=== PATIENT | male | born 1965 | race Caucasian/White ===

== ENCOUNTER 2022-10-05 09:58 | Outpatient (OUT) | payer BC, SELFPAY ==
[2022-10-05 13:01] LABS: Free T4 1.06 ng/dL (0.76-1.46)
[2022-10-05 13:33] LABS: Free T3 2.93 pg/mL (2.18-3.98); Thyroid Stimulating Hormone 1.473 uIU/mL (0.358-3.740)
[2022-10-06 04:07] LABS: FSH 0.9 mIU/mL (1.5-12.4); Luteinizing Hormone(LH) <0.3 mIU/mL (1.7-8.6); Prolactin 6.1 ng/mL (4.0-15.2); Sex Horm Binding Glob, Serum 14.6 nmol/L (19.3-76.4); Testosterone 47 ng/dL (264-916)
[2022-10-08 16:09] LABS: Thyroglobulin Antibody <1.0 IU/mL (0.0-0.9)
[2022-10-12 00:06] LABS: Thyroglobulin (TG-RIA) 4.9 ng/mL (.)
== END 2022-10-05 09:59 ==
LOC: LAB 10:02
PROVIDERS: PCP Family Medicine; Visit Provider Internal Medicine
DX: E03.9 Hypothyroidism, unspecified (principal)
CPT/HCPCS: 36415; 80048; 82728; 83001; 83002; 84146; 84270; 84403; 84432; 84439; 84443; 84481; 86800

== ENCOUNTER 2022-10-05 10:05 | Outpatient (OUT) | payer BC, SELFPAY ==
[2022-10-05 12:32] LABS: Estimated Average Glucose 143 mg/dL; Glycohemoglobin A1C 6.6 % (4.5-6.2)
[2022-10-05 13:15] LABS: Alanine Aminotransferase 47 U/L (16-63); Albumin Globulin Ratio 0.9; Albumin Level 3.6 g/dL (3.4-5.0); Alkaline Phosphatase 88 U/L (46-116); Anion Gap 11.2; Aspartate Amino Transferase 19 U/L (15-37); BUN Creatinine Ratio 14.7; Bilirubin Total 0.6 mg/dL (0.2-1.0); Calcium 9.3 mg/dL (8.5-10.1); Carbon Dioxide 30.2 mmol/L (21.0-32.0); Chloride 104 mmol/L (98-107); Chol HDL Ratio 4.8; Cholesterol 191 mg/dL (<=200); Estimated GFR (African America >60 (>=60); Estimated GFR (Non-African Ame >60 (>=60); Globulin 4.1 g/dL; Glucose 133 mg/dL (74-106); HDL Cholesterol 40 mg/dL (40-60); Potassium 4.4 mmol/L (3.5-5.1); Sodium 141 mmol/L (136-145); Total Protein 7.7 g/dL (6.4-8.2); Triglycerides 105 mg/dL (<=150)
== END 2022-10-05 10:06 ==
LOC: LAB 10:07
PROVIDERS: PCP Family Medicine; Visit Provider Family Medicine
DX: E03.9 Hypothyroidism, unspecified (principal); E11.9 Type 2 diabetes mellitus without complications; E78.2 Mixed hyperlipidemia; I10 Essential (primary) hypertension
CPT/HCPCS: 36415; 80053; 80061; 82728; 83001; 83002; 83036; 84146; 84270; 84403; 84432; 84439; 84443; 84481; 86800

== ENCOUNTER 2024-10-12 08:42 | Outpatient (OUT) | payer BC, SELFPAY ==
--- OUTSIDE RECORDS SUMMARY | 2024-09-30 15:30 | XMS_ITS | Encounter Summary ---
Author Organization [facility] Address [address] [place] [address] Care Team Providers Care Dean Of Girls Name Role Phone Elio Cueto MD Primary Care Provider [phone] Reason for Visit * Reason Comments Testicular Hypofunction Injections Encounter Details Date Type Department Care Team (Latest Contact Info) Description 09/30/2024 3:30 PM EDT Office Visit [facility] [address] [place] [phone] Hypopituitarism (HCC) Social History Tobacco Use Types Packs/Day Years Used Date Smoking Tobacco: Never Smokeless Tobacco: Never Alcohol Use Standard Drinks/Week Comments Not Currently 0 (1 standard drink = 0.6 oz pur e alcohol) Sex and Gender Information Value Date Recorded Sex Assigned at Not on file Legal Sex Male 11:47 PM EDT Gender Identity Not on file Sexual Orientation Not on file documented as of this encounter Plan of Treatment Upcoming Encounters Date Type Department Care Team (Late st Contact Info) Description 10/21/2024 2:30 PM EDT Clinical Support [facility] [address] [place] [phone] 10/28/2024 2:30 PM EDT Office Visit [facility] [address] [place] [phone] Kale Barnard MD [address] [place], [place] [id number] 11/18/2024 2:30 PM EDT Clinical Support [facility] [address] [place] [address] 06/28/2025 3:40 PM EDT Office Visit [facility] [address] [place] [address] Sebastian James MD [address] [facility] [address] [facility] [address] [place] [address] documented as of this encounter Visit Diagnoses Diagnosis Hypopituitarism (HCC) Panhypopituitarism documented in this encounter Administered Medications Inactive Administered Medications - up to 3 most recent administrations Medication Order MAR Action Action Date Dose Rate Site testosterone cypionate (Depo-Testosterone) injection 200 mg 200 mg, Intramuscular, Once, On Sat09/30/24 at 1545, For 1 doseIndications:Hypopituita rism (HCC) Given 09/30/2024 3:38 PM EDT 200 mg Left Gluteal documented in this encounter Care Teams Dean Of Girls Relationship Specialty Start Date End Date Elio Cueto MD [address] [facility] [place] [address] PCP - General Family Medicine 09/11/22 documented as of this encounter
--- OUTSIDE RECORDS SUMMARY | 2024-10-01 09:15 | XMS_ITS | Encounter Summary ---
Author Organization [facility] Address [address] [place] [address] Care Team Providers Care Farm Contractor Buyer Name Role Phone Elio Cueto MD Primary Care Provider [phone] Encounter Details Date Type Department Care Team (Latest Contact Info) Description 10/01/2024 9:15 AM EDT Clinical Support [facility] [address] [facility] [address] [place] [phone] Allergic rhinitis due to animal (cat) (dog) hair and dander Social History Tobacco Use Types Packs/Day Years [...] on file documented as of this encounter Progress Notes * Zena Cody RN - 10/01/2024 9:15 AM EDT Patient remained in office for recommended 30 minutes. Serum #1 Antigen(s) Serum #1 Antigen(s): DF/DP/Clado Vial Concentration #1: 1:100 (Blue) Dose (mL) #1: 0.4 Location #1: Right upper arm Serum #2 Antigen(s) Serum #2 Antigen(s): Tr/Spwd/Gr/Spgr Vial Concentration #2: 1:100 (Blue) Dose (mL)#2: 0.4 Location #2: Left upper arm Serum #3 Antigen(s) (No admin fee over 2) Serum #3 Antigen(s): RW/dog/cat hair Vial Concentration #3: 1:100 (Blue) Dose: 0.4 Location: Right lower arm documented in this encounter Plan of Treatment Upcoming Encounters Date Type Department Care Team (Late st Contact Info) Description 10/21/2024 2:30 PM EDT Clinical Support [facility] [address] [place] [address] 10/28/2024 2:30 PM EDT Office Visit [facility] [address] [place] [address] Kale Barnard MD [address], [address] [place] [address] 11/18/2024 2:30 PM EDT Clinical Support [facility] [address] [place] [address] 06/28/2025 3:40 PM EDT Office Visit [facility] [address] [place] [address] Sebastian James MD [address] [place] [address] documented as of this encounter Visit Diagnoses Diagnosis Allergic rhinitis due to animal (cat) (dog) hair and dander documented in this encounter Care Teams Farm Contractor Buyer Relationship Specialty Start Date End Date Elio Cueto MD [address] [facility] [place] [address] PCP - General Family Medicine 09/11/22 documented as of this encounter
--- OUTSIDE RECORDS SUMMARY | 2024-10-08 13:00 | XMS_ITS | Encounter Summary ---
Author Organization [facility] Address [address] [place] [address] Care Team Providers Care Graphic Editor Name Role Phone Rom Elio Hector DO Primary Care Provider + [phone] Reason for Visit * Reason Comments Follow-up Patient presents tod ay for a 1 year PVR. Patient reports doing well with occasional urgency. Denies any hematuria or dysuria. Encounter Details Date Type Department Care Team (Late st Contact Info) Description 10/08/2024 1:00 PM EDT Office Visit [facility] Part of [address] [place] [address] Lisa Cassidy, LOCKSTITCH TOPSTITCHER - SCRUM PRODUCT OWNER [address] [place] [address] [address] [place] [address] BPH with obstruction/lower urinary tract symptoms (Primary Dx); Erectile dysfunction, unspecified erectile dysfunction type Social History Tobacco Use Types Packs/Day Years Used Date Smoking Tobacco: Never Smokeless Tobacco: Never Tobacco Cessation:Counseling Given: Not Answered Alcohol Use Standard Drinks/Week Comments No 0 (1 standard drink = 0.6 oz pur e alcohol) Sex and Gender Information Value Date Recorded Sex Assigned at Not on file Legal Sex Male 8:48 PM EST Gender Identity Not on file Sexual Orientation Not on file documented as of this encounter Last Filed Vital Signs Vital Sign Reading Time Taken Comments Blood Pressure 132/73 10/08/2024 1:18 PM EDT Pulse 58 10/08/2024 1:07 PM EDT Temperature - - Respiratory Rate - - Oxygen Saturation - - Inhaled Oxygen Concentration - - Weight 114.9 kg (253 lb 3.2 oz) 10/08/2024 1:07 PM EDT Height - - Body Mass Index 36.33 08/24/2022 10:37 AM EDT documented in this encounter Progress Notes * Ilana Arthur MA - 10/08/2024 1:07 PM EDT Voided: 25 ml PVR: 0 ml * Sergey Mosher MD - 10/08/2024 1:00 PM EDT History 2006 Burst disc - back surgery - has had nerve damage issues from waist down since then includingnumbness of one of his buttocks and right side of his groin. Also has erectile dysfunction since then as well. 03/2016 Referred for post-op urinary retention S/p lap jl by Dr Henderson 03/28/16. Pt started onFlomax. Pt reports this did happen about 10 yrs ago after back surgery. At baseline he reports somestraining, intermittency, constant urge to void, q1.5hr frequency. 04/17/16 - 2 wks after void trial. Feels he is emptying well. PVR good (88 mL). Does still have moderate LUTS, IPSS 14/3. Does not feel these have improved much with Flomax. Thinks maybe stream is a little stronger, otherwise no obvious improvements. Did request we check PSA due to LUTS. PSA 05/16/16 0.96. 05/2016 IPSS 18/3 added proscar 06/2017 BPH with LUTS. Taking Flomax and finasteride daily. No significant improvement since the addition of the Proscar. Cystoscopy showed bilobar hyperplasia 08/27/2017 PVP greenlight Off of Flomax and finasteride 09/2023 recommended vacuum pump for ED Today Here today to follow-up for BPH and ED. patient was able to void well today. He had a void of 25 mL. He had a postvoid residual of 0 mL. Patient is doing really well. He is not interested in any therapy for erectile dysfunction. Patient does not any gross hematuria or dysuria. He has no flank pain nausea or vomiting. He is currently not taking the medication to help him void. He reports no new or worsening lower urinary tract symptoms. He has no pain today. This is a 59 y.o. male with the following diagnoses: Diagnosis Orders 1. BPH with obstruction/lower urinary tract symptoms 2. Erectile dysfunction, unspecified erectile dysfunction type Plan Patient will continue with current therapy. He will follow-up with us in 1 year. He is getting his PSA checked by primary care. documented in this encounter Plan of Treatment Upcoming Encounters Date Type Department Care Team (Late st Contact Info) Description 10/12/2025 2:30 PM EDT Office Visit [facility] Part of [address] [place] [address] Lisa Cassidy, LOCKSTITCH TOPSTITCHER - SCRUM PRODUCT OWNER [address] [place] [address] [address] [place] [address] 1Y f/u documented as of this encounter Visit Diagnoses Diagnosis BPH with obstruction/lower urinary tract symptoms- Primary Hypertrophy of prostate with urinary obstruction and other lower urinary tract symptoms (LUTS) Erectile dysfunction, unspecified erectile dysfunction type documented in this encounter Care Teams Graphic Editor Relationship Specialty Start Date End Date Elio Cueto DO PCP - General 02/16/16 documented as of this encounter
--- OUTSIDE RECORDS SUMMARY | 2024-10-12 08:47 | XMS_ITS | Encounter Summary ---
Author Organization [facility] Address [address] [facility] [place] [address] Care Team Providers Care Recorder Helper Seismograph Name Role Phone Martin Carlson SUPERVISOR [employer] Unavailable [phone] Elio Cueto MD Primary Care Provider Martin Carlson SUPERVISOR [employer]ARM Unavailable [phone] Encounter Details Date Type Department Care Team (Late st Contact Info) Description 10/25/2022 Abstract [facility] [address] [place] [address] Enoch Gomez, PT [address] [place] [phone] Social History Tobacco Use Types Packs/Day Years [...] Clinical Support [facility] [address] [facility] [address] [place] [address] 10/28/2024 2:30 PM EDT Office Visit [facility] [address] [place] [id number] Kale Barnard MD [address], [address] [place] [address] 11/18/2024 2:30 PM EDT Clinical Support [facility] [address] [facility] [place] [phone] 06/28/2025 3:40 PM EDT Office Visit [facility] [address] [facility] [place] [phone] Sebastian James MD [address] [facility] [place] [address] documented as of this encounter Visit Diagnoses Not on filedocumented in this encounter Care Teams Recorder Helper Seismograph Relationship Specialty Start Date End Date Martin Carlson NP [address] [place], [place] [phone] PCP - [place] [employer] [employer] 05/16/22 Elio Cueto MD [address] [facility] [place] [address] PCP - General Family Medicine 09/11/22 Martin Carlson NP [address] [place], [place] [address] PCP - Beverley Commercial 01/14/2402/12 documented as of this encounter
--- OUTSIDE RECORDS SUMMARY | 2024-10-12 08:47 | XMS_ITS | Encounter Summary ---
Author Organization [facility] [place] [facility] Address [address] [place] [address] Care Team Providers Care High Density Finishing Operator Name Role Phone Elio Cueto DO Primary Care Provider Encounter Details Date Type Department Care Team (Late Contact Info) Description 03/29/2016 FollowUp Telephone Encounter [facility] General Surgery [address] [place], [place] [id number] Marianela Aly, RN Social History Tobacco Use Types Packs/Day Years Used Date Smoking Tobacco: Never Smokeless Tobacco: Never Alcohol Use Standard Drinks/Week Comments No 0 (1 standard drink = 0.6 oz pur e alcohol) Sex and Gender Information Value Date Recorded Sex Assigned at Not on file Legal Sex Male 8:48 PM EST Gender Identity Not on file Sexual Orientation Not on file documented as of this encounter Plan of Treatment Upcoming Encounters Date Type Department Care Team ([facility] Contact Info) Description 10/12/2025 2:30 PM EDT Office Visit [facility] Part of [address] [place] [address] Lisa Cassidy, HEALTH SERVICES RN - PSYCHOSOCIAL REHABILITATION COUNSELOR [address] [place] [address] [address] [place] [address] 1Y f/u documented as of this encounter Visit Diagnoses Not on filedocumented in this encounter Care Teams High Density Finishing Operator Relationship Specialty Start Date End Date Elio Cueto DO PCP - General 02/16/16 documented as of this encounter
--- OUTSIDE RECORDS SUMMARY | 2024-10-12 08:47 | XMS_ITS | Encounter Summary ---
Author Organization [facility] [facility] Address [id number] [address] [place] [address] Care Team Providers Care Lag Screwer Name Role Phone Rom Elio Hector DO Primary Care Provider + [phone] Encounter Details Date Type Department Care Team (Late st Contact Info) Description 05/25/2024 Telephone [facility] Internal Medicine - Family Medicine [address] [place] [address] Aracelis Rodriguez CMA Social History Tobacco Use Types Packs/Day Years Used Date Smoking Tobacco: Never Smokeless Tobacco: Never Alcohol Use Standard Drinks/Week Comments Never 0 (1 standard drink = 0.6 oz pur e alcohol) [facility] Utilities Answer Date Recorded In the past 12 months has [employer] electric, gas, oil, or water company threatened to shut off services in your home? No 05/06/2023 Social Connection and Isolat ion Panel [NHANES] Answer Date Recorded In a typical week, how many times do you talk on the phone with family, friends, or neighbors? More than three times a week 01/24/2022 How often do you get togethe r with friends or relatives? More than three times a week 01/24/2022 How often do you attend chur ch or sabianism services? More than 4 times per year 01/24/2022 Do you belong to any clubs o r organizations such as samaritan groups, unions, fraternal or athletic groups, or school groups? Yes 01/24/2022 How often do you attend meet ings of the clubs or organizations you belong to? More than 4 times per year 01/24/2022 Are you , , di vorced, , never , or living with a partner? 01/24/2022 AUDIT-C Answer Date Recorded Q1: How often do you have a drink containing alcohol? Never 01/24/2022 Q2: How many drinks containi ng alcohol do you have on a typical day when you are drinking? Patient does not drink Q3: How often do you have si x or more drinks on one occasion? Never 01/24/2022 Overall Financial Resource Strain (CARDIA) Answe r Date Recorded How hard is it for you to pa y for the very basics like food, housing, medical care, and heating? Not hard at all 01/24/2022 PHQ-2 Answer Date Recorded Total Score 0 05/11/2024 [facility] of Occupat ional Health - Occupational Stress Questionnaire Answer Date Recorded Do you feel stress - tense, restless, nervous, or anxious, or unable to sleep at night because your mind is troubled all the time - these days? Not at all 01/24/2022 Exercise Vital Sign Answer Date Recorde d On average, how many days pe r week do you engage in moderate to strenuous exercise (like a brisk walk)? 2 days 05/11/2024 On average, how many minutes do you engage in exercise at this level? 20 min 05/11/2024 PRAPARE - Transportation Answer Date Re corded In the past 12 months, has l ack of transportation kept you from medical appointments or from getting medications? No 01/13 In the past 12 months, has l ack of transportation kept you from meetings, work, or from getting things needed for daily living? No 01/24/2022 Housing Instability Answer Date Recorde d Are you worried or concerned that in the next two months you may not have stable housing that you own, rent or stay in as a part of a household? No 05/11/2024 Childcare Answer Date Recorded Do problems getting child ca re make it difficult for you to work or study? No 01/24/2022 Employment Answer Date Recorded Do you need help finding a l ocal career center and/or a training program? No 01/24/2022 Hunger Screening Answer Date Recorded Within the past 12 months we worried whether our food would run out before we got money to buy more. Never True 05/11/2024 Within the past 12 months th e food we bought just didn't last and we didn't have money to get more. Never True 05/11/2024 Purpose - Life Answer Date Recorded I have a purpose and direction in my life. Stron gly Agree 01/24/2022 Sex and Gender Information Value Date Recorded Sex Assigned at Not on file Legal Sex Male 11:47 AM EDT Gender Identity Not on file Sexual Orientation Not on file documented as of this encounter Miscellaneous Notes * Telephone Encounter - Aracelis Rodriguez CMA - 05/25/2024 2:25 PM EST Pt called stated we called but the best time to call him after 4:30- 5 pm documented in this encounter Plan of Treatment Upcoming Encounters Date Type Department Care Team (Late st Contact Info) Description 11/09/2024 9:00 AM EDT Office Visit [facility] - Family Medicine [address] [address] Elio Cueto DO [address] [place] [address] documented as of this encounter Visit Diagnoses Not on filedocumented in this encounter Additional Health Concerns Assessment Noted Time PHQ-9 Depression Total Score: 0 05/11/19 25 8:36 AM EST documented as of this encounter Care Teams Lag Screwer Relationship Specialty Start Date End Date Elio Cueto DO [address] [facility] [place] [address] PCP - General Family Medicine 06/28/22 documented as of this encounter
--- OUTSIDE RECORDS SUMMARY | 2024-10-12 08:47 | XMS_ITS | Encounter Summary ---
Author Organization [facility] [employer] [facility] Address [id number] [address] [place] [address] Care Team Providers Care Life Science Teacher Name Role Phone Elio Cueto Primary Care Provider + [phone] Encounter Details Date Type Department Care Team (Late st Contact Info) Description 10/15/2022 Orders Only [facility] Internal Medicine - Family Medicine [address] [place] [address] Ref Prov, [place] [address] Social History Tobacco Use Types Packs/Day Years Used Date Smoking Tobacco: Never Smokeless Tobacco: Never Alcohol Use Standard Drinks/Week Comments Never 0 (1 standard drink = 0.6 oz pur e alcohol) Social Connection and Isolat ion Panel [NHANES] Answer Date Recorded In a typical week, how many times do you talk on the phone with family, friends, or neighbors? More than three times a week 01/24/2022 How often do you get togethe r with friends or relatives? More than three times a week 01/24/2022 How often do you attend chur ch or muslim services? More than 4 times per year 01/24/2022 Do you belong to any clubs o r organizations such as anglican groups, unions, fraternal or athletic groups, or [...] PHQ-2 Answer Date Recorded Total Score 0 10/12/2022 [facility] of Occupat ional Health - Occupational Stress [...] to strenuous exercise (like a brisk walk)? 7 days 10/12/2022 On average, how many minutes do you engage in exercise at this level? 30 min 10/12/2022 PRAPARE - Transportation Answer Date Re corded In the past 12 months, has l ack of transportation kept you from medical appointments or from getting medications? No 01/13 In the past 12 months, has l ack of transportation kept you from meetings, work, or from getting things needed for daily living? No 01/24/2022 Childcare Answer Date Recorded Do problems getting child ca re make it difficult for you to work or study? No 01/24/2022 Employment Answer Date Recorded Do you need help finding a [facility] career center and/or a training program? No 01/24/2022 Hunger Screening Answer Date Recorded Within the past 12 months we worried whether our food would run out before we got money to buy more. Never True 10/12/2022 Within the past 12 months th e food we bought just didn't last and we didn't have money to get more. Never True 10/12/2022 Purpose - Life Answer Date Recorded I [...] Internal Medicine - Family Medicine [address] [place] [address] Elio Cueto DO [address] [place] [address] documented as of this encounter Procedures Procedure Name Priority Date/Time Associated Diagnosis Comments COLOGUARD NON-[facility] Routine 12/16/2020 documented in this encounter Results * Cologuard Non-[facility] (12/16/2020) Stool Rectum structure / Unknown us Not In System Ref Prov LAB ORDERABLES Final Res ult MANUALLY TRANSCRIBED RESULTS documented in this encounter Visit Diagnoses Not on filedocumented in this encounter Additional Health Concerns Assessment Noted Time PHQ-9 Depression Total Score: 0 10/13/19 23 10:30 AM EDT documented as of this encounter Care Teams Life Science Teacher Relationship Specialty Start Date End Date Elio Cueto DO [address] [place] [address] PCP - General Family Medicine 06/28/22 documented as of this encounter
--- OUTSIDE RECORDS SUMMARY | 2024-10-12 08:47 | XMS_ITS | Encounter Summary ---
Author Organization [facility] Address [id number] [address] [place] [address] Care Team Providers Care Rotary Machine Operator Name Role Phone MattElio baca Primary Care Provider + [phone] Encounter Details Date Type Department Care Team (Late st Contact Info) Description 06/19/2024 Orders Only [facility] - Family Medicine [address] [place] [phone] Ref Prov, [place] [address] Social History Tobacco Use Types Packs/Day Years Used Date Smoking Tobacco: Never Smokeless Tobacco: Never Alcohol Use Standard Drinks/Week Comments Never 0 (1 standard drink = 0.6 oz pur e alcohol) [facility] Utilities Answer Date Recorded In the past 12 months has e electric, gas, oil, or water company threatened [...] often do you attend chur ch or amish services? More than 4 times per year 01/24/2022 Do you belong to any clubs o r organizations such as yarsani groups, unions, fraternal or athletic groups, or [...] Answer Date Recorded Total Score 0 05/11/2024 [facility] [place] of Occupat ional Health - Occupational Stress [...] Do you need help finding a l al career center and/or a training program? No [...] - Family Medicine [address] [place] [address] Elio Cueto DO [address], [facility] [place] [address] documented as of this encounter Procedures Procedure Name Priority Date/Time Associated Diagnosis Comments DIABETES EYE EXAM Routine 06/18/2024 9:51 AM EST documented in this encounter Results * DIABETES EYE EXAM (06/18/2024 9:51 AM EST) us Not In System Ref Prov HEALTH MAINTENANCE Final Result MANUALLY TRANSCRIBED RESULTS documented in this encounter Visit Diagnoses Not on filedocumented in this encounter Additional Health Concerns Assessment Noted Time PHQ-9 Depression Total Score: 0 05/11/19 25 8:36 AM EST documented as of this encounter Care Teams Rotary Machine Operator Relationship Specialty Start Date End Date Elio Cueto DO [address] [place] [address] PCP - General Family Medicine 06/28/22 documented as of this encounter
--- OUTSIDE RECORDS SUMMARY | 2024-10-12 08:47 | XMS_ITS | Encounter Summary ---
Author Organization [facility] Address [address] [place] [address] Care Team Providers Care Stem Mounter Name Role Phone CarlsonMartin reardon COMPUTER COMPOSITOR Unavailable [phone] Elio Cueto MD Primary Care Provider [phone] CarlsonMartin reardon COMPUTER COMPOSITOR Unavailable [phone] Encounter Details Date Type Department Care Team (Late st Contact Info) Description 10/21/2022 Abstract [facility] [address] [facility] [address] [place] [phone] Jeremie Montgomery, PT [address] [facility] [address] [place] [address] Social History Tobacco Use Types Packs/Day Years Used Date Smoking Tobacco: Never Tobacco Cessation:Counseling Given: Not Answered Alcohol Use Standard Drinks/Week Comments Not Currently [...] Clinical Support [facility] [address] [facility] [address] [place] [address] 10/28/2024 2:30 PM EDT Office Visit [facility] [address] [place] [phone] Kale Barnard MD [address] [place] [address] 11/18/2024 2:30 PM EDT Clinical Support [facility] [address] [facility] [place] [phone] 06/28/2025 3:40 PM EDT Office Visit [facility] [address] [facility] [place] [address] Sebastian James MD [address] [facility] [place] [address] documented as of this encounter Visit Diagnoses Not on filedocumented in this encounter Care Teams Stem Mounter Relationship Specialty Start Date End Date Martin Carlson NP [address] [place], [place] [id number] PCP - [place] Commercial 05/16/22 Elio Cueto MD [address] [facility] [place] [address] PCP - General Family Medicine 09/11/22 Martin Carlson NP [address] [place], [place] [phone] PCP - [place] [employer] 01/14/2402/12 documented as of this encounter
--- OUTSIDE RECORDS SUMMARY | 2024-10-12 08:47 | XMS_ITS | Encounter Summary ---
Author Organization [facility] Address [id number] [address] [place] [address] Care Team Providers Care Narcotics And/Or Vice Detective Name Role Phone Rom Elio Hector DO Primary Care Provider [phone] Encounter Details Date Type Department Care Team (Late st Contact Info) Description 01/22/2024 Telephone [facility] Internal Medicine - Family Medicine [address] [place] [address] Aracelis Rodriguez CMA Social History Tobacco Use Types Packs/Day Years Used Date Smoking Tobacco: Never Smokeless Tobacco: Never Alcohol Use Standard Drinks/Week Comments Never 0 (1 standard drink = 0.6 oz pur e alcohol) [facility] Utilities Answer Date Recorded In the past 12 months has [employer], gas, oil, or water company threatened [...] often do you attend chur ch or rastafari services? More than 4 times per year 01/24/2022 Do you belong to any clubs o r organizations such as scientologist groups, unions, fraternal or athletic groups, or [...] PHQ-2 Answer Date Recorded Total Score 0 01/02/2024 [facility] of Occupat ional Health - Occupational Stress [...] got money to buy more. Never True 01/02/2024 Within the past 12 months th e food we bought just didn't last and we didn't have money to get more. Never True 01/02/2024 Purpose - Life Answer Date Recorded I have a purpose and direction in my life. Stron gly Agree 01/24/2022 Sex and Gender Information Value Date Recorded Sex Assigned at Not on file Legal Sex Male 11:47 AM EDT Gender Identity Not on file Sexual Orientation Not on file documented as of this encounter Miscellaneous Notes * Telephone Encounter - Aracelis Rodriguez CMA - 01/22/2024 1:23 PM EDT Called pt left vm to cb ----- Message from Dr. Elio Cueto DO sent at 01/22/2024 11:39 AM EDT ----- His Cologuard was negative. Recheck in 3 years * Telephone Encounter - Aracelis Rodriguez CMA - 01/22/2024 1:23 PM EDT Pt called back read note stated he understood documented in this encounter Plan of Treatment Upcoming Encounters Date Type Department Care Team (Late st Contact Info) Description 11/09/2024 9:00 AM EDT Office Visit [facility] Medicine - Family Medicine [address] [place] [address] Elio Cueto DO [address] [facility] [place] [address] documented as of this encounter Visit Diagnoses Not on filedocumented in this encounter Additional Health Concerns Assessment Noted Time PHQ-9 Depression Total Score: 0 01/02/20 24 4:22 PM EDT documented as of this encounter Care Teams Narcotics And/Or Vice Detective Relationship Specialty Start Date End Date Elio Cueto DO [address] [facility] [place] [address] PCP - General Family Medicine 06/28/22 documented as of this encounter
--- OUTSIDE RECORDS SUMMARY | 2024-10-12 08:47 | XMS_ITS | Encounter Summary ---
Author Organization [facility] Address [address] [facility] [place] [address] Care Team Providers Care Environmental Field Technician Name Role Phone Elio Cueto MD Primary Care Provider [phone] Encounter Details Date Type Department Care Team (Late st Contact Info) Description 03/31/2024 Orders Only [facility] [address] [place] [address] Kale Barnard MD [address], [address] [place] [address] Hypopituitarism (HCC) (Primary Dx) Social History Tobacco Use Types Packs/Day Years [...] [facility] [address] [place] [address] 10/28/2024 2:30 PM EDT Office Visit [facility] [address] [place] [address] Kale Barnard MD [address] [place] [address] 11/18/2024 2:30 PM EDT Clinical Support [facility] [address] [address] 06/28/2025 3:40 PM EDT Office Visit [facility] [address] [facility] [address] [address] Sebastian James MD [address] [facility] [address] [address] documented as of this encounter Visit Diagnoses Diagnosis Hypopituitarism (HCC)- Primary Panhypopituitarism documented in this encounter Care Teams Environmental Field Technician Relationship Specialty Start Date End Date Elio Cueto MD [address], [facility] [place] [address] PCP - General Family Medicine 09/11/22 documented as of this encounter
--- OUTSIDE RECORDS SUMMARY | 2024-10-12 08:47 | XMS_ITS | Encounter Summary ---
Author Organization [facility] Address [id number] [address] [place] [address] Care Team Providers Care Supply Chain Generalist Name Role Phone RomElio Primary Care Provider + [phone] Encounter Details Date Type Department Care Team (Late st Contact Info) Description 10/12/2022 Orders Only [facility] Internal Medicine - Family Medicine [address] [place] [address] External, Scanning Provider Social History Tobacco Use Types Packs/Day Years [...] often do you attend chur ch or uatsdin services? More than 4 times per year 01/24/2022 Do you belong to any clubs o r organizations such as rastafarian groups, unions, fraternal or athletic groups, or [...] Answer Date Recorded Total Score 0 10/12/2022 [facility] of Occupat ional Health - Occupational Stress [...] Recorded Do you need help finding a [facility] career center and/or a training program? No [...] Medicine - Family Medicine [address] [place] [address] Elio Cueto DO [address], [place] [address] documented as of this encounter Procedures Procedure Name Priority Date/Time Associated Diagnosis Comments MULTIPLE LABS Routine 10/12/2022 documented in this encounter Results * Multiple labs (10/12/2022) us Scanning Provider External [facility] Final Result MANUALLY TRANSCRIBED RESULTS documented in this encounter Visit Diagnoses Not on filedocumented in this encounter Additional Health Concerns Assessment Noted Time PHQ-9 Depression Total Score: 0 10/13/19 23 10:30 AM EDT documented as of this encounter Care Teams Supply Chain Generalist Relationship Specialty Start Date End Date Elio Cueto DO [address] [facility] [place] [address] PCP - General Family Medicine 06/28/22 documented as of this encounter
--- OUTSIDE RECORDS SUMMARY | 2024-10-12 08:47 | XMS_ITS | Encounter Summary ---
Author Organization [facility] [facility] tem Address [id number] [address] [place] [address] Care Team Providers Care Small Engine Trainer Name Role Phone Elio Cueto DO Primary Care Provider [phone] Reason for Visit * Reason Comments Med Refill Encounter Details Date Type Department Care Team (Late st Contact Info) Description 06/09/2024 Refill [facility] Internal Medicine - Family Medicine [address] [place] [phone] Elio Cueto DO [address], [place] [address] Mixed hyperlipidemia Social History Tobacco Use Types Packs/Day Years Used Date Smoking Tobacco: Never Smokeless Tobacco: Never Alcohol Use Standard Drinks/Week Comments Never 0 (1 standard drink = 0.6 oz pur e alcohol) [facility] Utilities Answer Date Recorded In the past 12 months has [employer], gas, oil, or water upad threatened to shut off services in your [...] 01/24/2022 How often do you attend chur or oriental orthodox services? More than 4 times per year 01/24/2022 Do you belong to any clubs o r organizations such as shinto groups, unions, fraternal or athletic groups, or [...] Answer Date Recorded Total Score 0 05/11/2024 [facility] of Occupat [facility] - Occupational Stress Questionnaire Answer Date Recorded [...] Recorded Do you need help finding a [facility] and/or a training program? No [...] encounter Miscellaneous Notes * Telephone Encounter - Elio Cueto DO - 06/09/2024 12:28 AM EST Dose was increased documented in this encounter Plan of Treatment Upcoming Encounters Date Type Department Care Team (Late st Contact Info) Description 11/09/2024 9:00 AM EDT Office Visit [facility] Medicine - Family Medicine [address] [place] [address] Elio Cueto DO [address] [facility] [place] [address] documented as of this encounter Visit Diagnoses Diagnosis Mixed hyperlipidemia documented in this encounter Additional Health Concerns Assessment Noted Time PHQ-9 Depression Total Score: 0 05/11/19 25 8:36 AM EST documented as of this encounter Care Teams Small Engine Trainer Relationship Specialty Start Date End Date Elio Cueto DO [address] [facility] [place] [address] PCP - General Family Medicine 06/28/22 documented as of this encounter
--- OUTSIDE RECORDS SUMMARY | 2024-10-12 08:47 | XMS_ITS | Encounter Summary ---
Author Organization [facility] Sys tem Address [id number] [address] [place] [address] Care Team Providers Care Assembler Wire Group Name Role Phone Elio Cueto DO Primary Care Provider [phone] Encounter Details Date Type Department Care Team (Late st Contact Info) Description 05/07/2023 Orders Only [facility] Internal Medicine - Family Medicine [address] [place] [address] Elio Cueto DO [address], [place] [address] Social History Tobacco Use Types Packs/Day Years Used Date Smoking Tobacco: Never Smokeless Tobacco: Never Alcohol Use Standard Drinks/Week Comments Never 0 (1 standard drink = 0.6 oz pur e alcohol) [facility] Utilities Answer Date Recorded In the past 12 months has [employer], gas, oil, or water company threatened [...] often do you attend chur ch or denominational services? More than 4 times per year 01/24/2022 Do you belong to any clubs o r organizations such as mu-ism groups, unions, fraternal or athletic groups, or [...] PHQ-2 Answer Date Recorded Total Score 0 05/06/2023 [facility] of Occupat ional Health - Occupational Stress [...] Recorded Do you need help finding a ocal career center and/or a training program? No 01/24/2022 Hunger Screening Answer Date Recorded Within the past 12 months we worried whether our food would run out before we got money to buy more. Never True 05/06/2023 Within the past 12 months th e food we bought just didn't last and we didn't have money to get more. Never True 05/06/2023 Purpose - Life Answer Date Recorded I [...] Medicine - Family Medicine [address] [place] [address] Elio Cueto DO [address] [facility] [place] [address] documented as of this encounter Visit Diagnoses Not on filedocumented in this encounter Additional Health Concerns Assessment Noted Time PHQ-9 Depression Total Score: 0 05/06/19 24 9:36 AM EST documented as of this encounter Care Teams Assembler Wire Group Relationship Specialty Start Date End Date Elio Cueto DO [address] [facility] [place] [address] PCP - General Family Medicine 06/28/22 documented as of this encounter
--- OUTSIDE RECORDS SUMMARY | 2024-10-12 08:47 | XMS_ITS | Encounter Summary ---
Author Organization [facility] Address [address] [place] [address] Care Team Providers Care Interface Control Officer Name Role Phone Elio Cueto MD Primary Care Provider [phone] Martin Carlson PUBLIC HEALTH POLICY ANALYST Unavailable [phone] Encounter Details Date Type Department Care Team (Late Contact Info) Description 01/09/2023 Abstract [facility] [address] [facility] [address] [place] [address] Sebastian James MD [address] [facility] [address] [place] [address] Social History Tobacco Use Types Packs/Day Years [...] Encounters Date Type Department Care Team (Late Contact Info) Description 10/21/2024 2:30 PM EDT Clinical Support [facility] [address] [facility] [address] [place] [address] 10/28/2024 2:30 PM EDT Office Visit [facility] [address] [place] [phone] Kale Barnard MD [address] [place] [address] 11/18/2024 2:30 PM EDT Clinical Support [facility] [address] [address] 06/28/2025 3:40 PM EDT Office Visit [facility] [address] [facility] [address] [place] [address] Sebatsian James MD [address] [address] documented as of this encounter Visit Diagnoses Not on filedocumented in this encounter Care Teams Interface Control Officer Relationship Specialty Start Date End Date Elio Cueto MD [address], [facility] [place] [address] PCP - General Family Medicine 09/11/22 Martin Carlson NP [address] [facility] [place], [place] [address] PCP - [place] Commercial 01/14/2402/12 documented as of this encounter
--- OUTSIDE RECORDS SUMMARY | 2024-10-12 08:47 | XMS_ITS | Clinical Summary ---
Author Organization [employer] tem Address [id number] [address] [place] [address] Care Team Providers Care Slab Off Mill Tender Name Role Phone Elio Cueto DO Primary Care Provider Allergies No known active allergies Medications ascorbic acid, vitamin C, (VITAMIN C) 1000 mg tablet Take 1 tablet (1,000 mg total) by mouth in the morning. Active NON FORMULARY Take 1 each by mouth in the morning. Total Restore herbal supplement for gut health. Active acetaminophen (TYLENOL EXTRA STRENGTH) 500 mg tablet Take 1 tablet (500 mg total) by mouth. Active cyanocobalamin, vitamin B-12, 5,000 mcg capsule Daily 4 Active EPINEPHrine (EPIPEN) 0.3 mg/0.3 mL auto-injector every 5 to 15 minutes 4 Active dapagliflozin propanediol (FARXIGA) 5 mg tabletIndicatio ns:Type 2 diabetes mellitus without complication, without long-term current use of insulin ([facility]) Take 1 tablet (5 mg total) by mouth in the morning. 90 tablet 1 5 Active Additional Information Patient not taking.Reported on 06/02/2024 rosuvastatin (CRESTOR) 10 mg tablet Take 1 tablet (10 mg total) by mouth nightly. 90 tablet 3 5 Active metFORMIN (GLUCOPHAGE) 500 mg tabletIndicatio ns:Type 2 diabetes mellitus without complication, without long-term current use of insulin ([facility]) TAKE 1 TABLET BY MOUTH EVERY DAY WITH BREAKFAST 90 tablet 1 5 Active levothyroxine (SYNTHROID, LEVOTHROID) 50 MCG tablet Take 1 tablet (50 mcg total) by mouth every morning. 90 tablet Active testosterone cypionate (DEPOTESTOTERON E CYPIONATE) 200 mg/mL injection Inject 1 mL (200 mg total) into the appropriate muscle every 14 (fourteen) days. 09/17/19 Active Problems Problem Noted Date Diagnosed Date Hx of anaphylaxis 07/18/2023 Allergic rhinitis due to animal (cat) (dog) hair and dander 03/06/2023 Right anterior shoulder pain 09/12/2022 S/P right rotator cuff repair 09/12/2022 Erectile dysfunction 08/24/2022 10/12/2022 Benign essential hypertension 07/05/2022 Hypotestosteronemia in male 07/05/2022 03/2 06/2022 Tear of right rotator cuff 07/05/202207/05 BMI 36.0-36.9,adult 01/24/2022 Hyperglycemia 01/24/2022 Type 2 diabetes mellitus wit hout complication, without long-term current use of insulin 01/24/2022 Kidney stone 09/12/2021 Steatosis of liver 09/12/2021 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 05/13/2018 Myalgia 02/04/2018 Decreased testosterone level 01/15/2017 Hypothyroidism 01/11/2017 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 Increased frequency of urination 11/20/2016 Morbid obesity 12/26/2015 Deviated nasal septum 10/05/2015 Hyperlipidemia 10/05/2015 Obstructive sleep apnea syndrome 10/05/2015 Resolved Problems Problem Noted Date Diagnosed Date Resolved Date Anaphylactic reaction 01/02/20242024 Moderate depressive episode 10/31/2017 10/12/2022 Impaired glucose tolerance 03/26/2016 0 09/05/2022 Encounters Date Type Department Care Team Description 08/25/2024 Refill [facility] [address] [place] [address] Kendal Story CMA 08/08/2024 Orders Only [facility] [address] [place] [address] Elio Cueto DO 08/08/2024 Refill [facility] [address] [place] [address] Elio Cueto, DO Type 2 diabetes mellitus without complication, without long-term current use of insulin ([facility]) from Last 3 Months Immunizations Immunization Administration Dates Next Due Tdap 07/02/2014 Family History Medical History Relation Name Comments Coronary artery disease Father Hiren nary Artery Bypass Grafts x5 Diabetes Father Depression Maternal Grandfather Obesity Mother Osteoarthritis Mother Obesity Paternal Grandmother Spina bifida Son Relation Name Status Comments Father Alive Maternal Grandfather Maternal Grandmother Mother Alive Paternal Grandfather Paternal Grandmother Son Social History Tobacco Use Types Packs/Day Years Used Date Smoking Tobacco: Never Smokeless Tobacco: Never Alcohol Use Standard Drinks/Week Comments Never 0 (1 standard drink = 0.6 oz pur e alcohol) [employer] Answer Date Recorded In the past 12 months has i4.ms, gas, oil, or water svh24.de threatened to shut off services in your [...] week 01/24/2022 How often do you attend [facility] or sabianism services? More than 4 times per year 01/24/2022 Do you belong to any clubs o r organizations such as hinduism groups, unions, fraternal or athletic groups, or [...] Answer Date Recorded Total Score 0 05/11/2024 [facility] of Occupat ional Health - Occupational [...] Recorded Do you need help finding a [facility] career center and/or a training program? No [...] on file Sexual Orientation Not on file Last Filed Vital Signs Vital Sign Reading Time Taken Comments Blood Pressure 120/70 06/02/2024 4:37 PM EST Pulse 74 06/02/2024 4:37 PM EST Temperature 36.4 C (97.6 F) 06/02/2024 4:37 PM EST Respiratory Rate 18 06/02/2024 4:37 PM EST Oxygen Saturation 99% 06/02/2024 4:37 PM EST Inhaled Oxygen Concentration - - Weight 113 kg (249 lb 3.2 oz) 06/02/2024 4:37 PM EST Height 177.8 cm (5' 10 ) 06/02/2024 4:37 PM EST Body Mass Index 35.76 06/02/2024 4:37 PM EST Plan of Treatment Upcoming Encounters Date Type Department Care Team (Late st Contact Info) Description 11/09/2024 9:00 AM EDT Office Visit [facility] [address] [place] [address] Elio Cueto, DO [address] [facility] [place] [address] Health Maintenance Due Date Last Done Comments Adult BMI Follow Up Plan 1985 Zoster (Shingles) Vaccine (1 of 2) 2017 DTaP,Tdap and Td Vaccines (2 - Td or Tdap) 07/02/2024 07/02/2014 Influenza Vaccine 12/14/2024 Diabetic Foot Exam 01/01/2025 01/02/2024, 10/12/2022 Depression Screening 05/11/2025 05/11/2024 Adult BMI Screening 06/02/2025 06/02/2024 Tobacco Screening 06/02/2025 06/02/2024 Diabetic Ophthalmology Exam 06/18/2025 03/0 09/2024, 02/15/2023, 02/15/2022, Additional history exists Colon Cancer Screening 3 Scott Bee 01/14/2027 01/15/2024, 12/16/2020 Medical Devices Implanted Type Area Camp Nurse Device Identifier Shelf Expiration Date Model / Serial / Lot Healicoil Regenesorb 4.75mm Suture [place] With One Ultratape And One Ultra Braid Implanted:Qty: 1 on 07/18/2022 by Wisam Curry DO at [facility] [place] Right: Shoulder [employer] 03/26/2025 [id number] / NA / [id number] Healicoil Regenesorb 4.75mm Suture [place] With One Ultratape And One Ultra Braid Implanted:Qty: 1 on 07/18/2022 by Wisam Curry DO at [facility] [place] Right: Shoulder [employer] 02/18/2024 [id number] / NA / [id number] Healicoil Knotless Regenesorb Suture [place] Implanted:Qty: 2 on 07/18/2022 by Wisam Curry DO at [facility] [place] Right: Shoulder [employer] 03/22/2025 [id number] / NA / [id number] Procedures Procedure Name Priority Date/Time Associated Diagnosis Comments DIABETES EYE EXAM Routine 06/18/2024 9:51 AM EST COLOGUARD NON-[facility] Routine 01/15/2024 6:00 PM EDT Screen for colon cancer from Last 3 Months or Most Recently Relevant to Health Maintenance Results * DIABETES EYE EXAM (06/18/2024 9:51 AM EST) us Not In System Ref Prov HEALTH MAINTENANCE Final Result MANUALLY TRANSCRIBED RESULTS * Cologuard Non-[facility] (01/15/2024 6:00 PM EDT) EXTERNAL COLOGUARD Negative Negative 2023 5:20 AM EDT [employer] (CLIA #:[id number]) Comment: NEGATIVE TEST RESULT. A negative Cologuard result indicates a low likelihood that a colorectal cancer (CRC) or advanced adenoma (adenomatous polyps with more advanced pre-malignant features) is present. The chance that a person with a negative Cologuard test has a colorectal cancer is less than 1 in 1500 (negative predictive value >99.9%) or has an advanced adenoma is less than 5.3% (negative predictive value 94.7%). These data are based on a prospective cross-sectional study of 10,000 individuals at average risk for colorectal cancer who were screened with both Cologuard and colonoscopy. (Maeve Reese et al, N Engl J Med 2014;370(14):5596-7053) The normal value (reference range) for this assay is negative. COLOGUARD RE-SCREENING RECOMMENDATION: Periodic colorectal cancer screening is an important part of preventive healthcare for asymptomatic individuals at average risk for colorectal cancer. Following a negative Cologuard result, the [place] Cancer Society and U.S. Multi-Society Task Force screening guidelines recommend a Cologuard re-screening interval of 3 years. References: [place] [employer] Guideline for Colorectal Cancer Screening: https://www.cancer.org/cancer/bpnat-sdgrkx-jlpqcu/rslvytktu-fmliyyeje-teiizwv/ac s-rec ommendations.html.; Kris DK, Dara THOMAS, Winsome SyK, Colorectal Cancer Screening: Recommendations for Physicians and Patients from the U.S. Multi-Society Task Force on Colorectal Cancer Screening , Am J Gastroenterology 2017; 112:0527-1654. TEST DESCRIPTION: Composite algorithmic analysis of stool DNA-biomarkers with hemoglobin immunoassay. Quantitative values of individual biomarkers are not reportable and are not associated with individual biomarker result reference ranges. Cologuard is intended for colorectal cancer screening of adults of either sex, 45 years or older, who are at average-risk for colorectal cancer (CRC). Cologuard has been approved for use by the U.S. FDA. The performance of Cologuard was established in a cross sectional study of average-risk adults aged 50-84. Cologuard performance in patients ages 45 to 49 years was estimated by sub-group analysis of near-age groups. Colonoscopies performed for a positive result may find as the most clinically significant lesion: colorectal cancer [4.0%], advanced adenoma (including sessile serrated polyps greater than or equal to 1cm diameter) [20%] or non- advanced adenoma [31%]; or no colorectal neoplasia [45%]. These estimates are derived from a prospective cross-sectional screening study of 10,000 individuals at average risk for colorectal cancer who were screened with both Cologuard and colonoscopy. (Maeve Reese et al, N Engl J Med 2014;370(14):1127-0379.) Cologuard may produce a false negative or false positive result (no colorectal cancer or precancerous polyp present at colonoscopy follow up). A negative Cologuard test result does not guarantee the absence of CRC or advanced adenoma (pre-cancer). The current Cologuard screening interval is every 3 years. ([place] [employer] Society and U.S. Multi-Society Task Force). Cologuard performance data in a 10,000 patient pivotal study using colonoscopy as the reference method can be accessed at the following location: www.[employer]/results. Additional description of the Cologuard test process, warnings and precautions can be found at www.MeddikogLaunchSide.comrd.Seeq. Stool specimen (specimen) Rectum structure / Unknown 01/15/2024 6:00 PM EDT 01/17/2024 1:20 PM EDT Elio Cueto DO LAB ORDERABLES Final Result [employer] (CLIA #:[id number]) [place] [address], from Last 3 Months or Most Recently Relevant to Health Maintenance Insurance ANTHEM Care Teams Slab Off Mill Tender Relationship Specialty Start Date End Date Rom Elio Hector DO [address] [facility], [place] [address] PCP - General Family Medicine 06/28/22
--- OUTSIDE RECORDS SUMMARY | 2024-10-12 08:48 | XMS_ITS | Encounter Summary ---
Author Organization [employer] tem Address [id number] [address] [place] [address] Care Team Providers Care Window Glazier Helper Name Role Phone MattElio baca Primary Care Provider + [phone] Encounter Details Date Type Department Care Team (Latest Contact Info) Description 06/29/2022 Orders Only [facility] [address] [phone] Kendal Story CMA Arthritis of right acromioclavicular joint; Primary osteoarthritis of right shoulder Social History Tobacco Use Types Packs/Day Years [...] often do you attend chur ch or zoroastrian services? More than 4 times per year 01/24/2022 Do you belong to any clubs o r organizations such as orthodox groups, unions, fraternal or athletic groups, or [...] 01/24/2022 PHQ-2 Answer Date Recorded Total Score 1 01/24/2022 [facility] of Occupat ional Health - Occupational Stress [...] to strenuous exercise (like a brisk walk)? 0 days 01/24/2022 On average, how many minutes do you engage in exercise at this level? 0 min 01/24/2022 PRAPARE - Transportation Answer Date Re corded [...] Recorded Do you need help finding a [employer] [facility] career center and/or a training program? No 01/24/2022 Purpose - Life Answer Date Recorded I have a purpose and direction in my life. Stron gly Agree 01/24/2022 Sex and Gender Information Value Date Recorded Sex Assigned at Not on file Legal Sex Male 11:47 AM EDT Gender Identity Not on file Sexual Orientation Not on file COVID-19 Exposure Response Date Recorded In the last month, have you been in contact with someone who was confirmed or suspected to have Coronavirus / COVID-19? No / Unsure 06/28/2022 8:18 AM EDT documented as of this encounter Plan of Treatment Upcoming Encounters Date Type Department Care Team (Late st Contact Info) Description 11/09/2024 9:00 AM EDT Office Visit [facility] [address] [place] [address] Elio Cueto DO [address], [facility] [place] [address] documented as of this encounter Procedures Procedure Name Priority Date/Time Associated Diagnosis Comments AMB REFERRAL TO ORTHOPEDIC SURGERY Routine 06/29/2022 11:34 AM EDT Arthritis of right acromioclavicular joint Primary osteoarthritis of right shoulder documented in this encounter Results * Ambulatory referral to Orthopedic Surgery (06/29/2022 11:34 AM EDT) us Elio Cueto DO OUTPATIENT REFERRAL ORDERABL ES Final Result MANUALLY TRANSCRIBED RESULTS documented in this encounter Visit Diagnoses Diagnosis Arthritis of right acromioclavicular joint Primary osteoarthritis of right shoulder documented in this encounter Additional Health Concerns Assessment Noted Time PHQ-9 Depression Total Score: 1 01/25/20 22 9:40 AM EDT documented as of this encounter Care Teams Window Glazier Helper Relationship Specialty Start Date End Date Elio Cueto DO [address] [facility] [place] [address] PCP - General Family Medicine 06/28/22 documented as of this encounter
--- OUTSIDE RECORDS SUMMARY | 2024-10-12 08:48 | XMS_ITS | Encounter Summary ---
Author Organization [email or web address] Address [id number] [address] [place] [address] Care Team Providers Care Accounts Clerk Name Role Phone Elio Cueto DO Primary Care Provider [phone] Encounter Details Date Type Department Care Team (Late st Contact Info) Description 09/04/2022 [facility] [address] [place] [address] Elio Cueto DO [address], [place] [address] Social History Tobacco Use Types Packs/Day Years [...] often do you attend chur ch or confucianist services? More than 4 times per year 01/24/2022 Do you belong to any clubs o r organizations such as yazidism groups, unions, fraternal or athletic groups, or [...] PHQ-2 Answer Date Recorded Total Score 0 07/05/2022 [facility] of Occupat ional Health - Occupational Stress [...] encounter Miscellaneous Notes * Telephone Encounter - Leanna Abarca - 09/04/2022 1:53 PM EDT patient is coming in for a dm recheck and would like [facility] sent [facility]. Thanks documented in this encounter Plan of Treatment Upcoming Encounters Date Type Department Care Team (Late st Contact Info) Description 11/09/2024 9:00 AM EDT Office Visit [facility] [address] [address] Elio Cueto DO [address], [place] [address] documented as of this encounter Visit Diagnoses Not on filedocumented in this encounter Additional Health Concerns Assessment Noted Time PHQ-9 Depression Total Score: 0 07/06/19 4:33 PM EDT documented as of this encounter Care Teams Accounts Clerk Relationship Specialty Start Date End Date Elio Cueto DO [address], [place] [address] PCP - General Family Medicine 06/28/22 documented as of this encounter
--- OUTSIDE RECORDS SUMMARY | 2024-10-12 08:48 | XMS_ITS | Clinical Summary ---
Author Organization [facility] Address [address] [place] [address] Care Team Providers Care Field Sales Engineer Name Role Phone Elio Cueto MD Primary Care Provider [phone] Allergies No known active allergies Medications rosuvastatin (Crestor) 5 MG tablet Take 5 mg by mouth at bedtime. Active metFORMIN (Glucophage) 500 MG tablet Take 500 mg by mouth in the morning. Take with meals. Active levothyroxine (Synthroid, Levoxyl) 50 MCG tablet Take 1 tablet by mouth in the morning. 3 Active levocetirizine (Xyzal) 5 MG tablet Take 5 mg by mouth in the evening. Active furosemide (Lasix) 20 MG tablet Take 20 mg by mouth in the morning. 3 Active B Tarveqe-A-Vjdvj Acid (Renal) 1 MG capsule Take 1 capsule by mouth in the morning. Active acetaminophen (Tylenol) 325 MG tablet every 4 (four) hours. Active azelastine (Astelin) 0.1 % nasal sprayIndication s:Chronic rhinitis Administer 2 sprays into each nostril in the morning and 2 sprays before bedtime. Use in each nostril as directed. 90 mL 3 3 Active fluticasone (Flonase) 50 MCG/ACT nasal sprayIndication s:Chronic rhinitis Administer 2 sprays into each nostril in the morning. Shake gently. Before first use, prime pump. After use, clean tip and replace cap.. 48 g 11 3 Active testosterone cypionate (Depo-Testoster one) 200 MG/ML injectionIndica tions:Hypopitui tarism (HCC) Inject 1 mL (200 mg) into the shoulder, thigh, or buttocks every 14 (fourteen) days 6 mL 1 4 Active testosterone cypionate (Depo-Testoster one) 200 MG/ML injectionIndica tions:Hypopitui tarism (HCC) Inject 1 mL (200 mg) into the shoulder, thigh, or buttocks every 14 (fourteen) days 6 mL 1 5 12/18/19 25 Active EPINEPHrine (Epipen) 0.3 MG/0.3ML injection syringeIndicati ons:Anaphylaxis , subsequent encounter Inject 0.3 mL (0.3 mg) as directed if needed for anaphylaxis Call 911 after use. 4 each 1 5 09/13/19 26 Active Hospital, Clinic, or Other Facility Administered Medication Ordered Dose Route Frequency Start Date End Date Status testosterone cypionate (Depo-Testosterone) injection 200 mgIndications:Hypopituitari sm (HCC) 200 mg IM Once 09/30/2024 09/30/2024 Ended Active Problems Problem Noted Date Diagnosed Date Allergic rhinitis due to animal (cat) (dog) hair and dander 03/06/2023 Right anterior shoulder pain 09/12/2022 S/P right rotator cuff repair 09/12/2022 Encounters Date Type Department Care Team Description 10/01/2024 9:15 AM EDT Clinical Support [facility] [address] [place] [address] Allergic rhinitis due to animal (cat) (dog) hair and dander 10/01/2024 Travel 09/30/2024 3:30 PM EDT Office Visit [facility] [address] [place] [address] Hypopituitarism (HCC) 09/11/2024 Telephone [facility] [address] [place] [address] Sebastian James MD 09/09/2024 3:40 PM EDT Office Visit [facility] [address] [place] [address] Hypopituitarism (HCC) 09/09/2024 2:30 PM EDT Clinical Support [facility] [address] [place] [id number] Allergic rhinitis due to animal (cat) (dog) hair and dander; Allergic rhinitis due to dust; Seasonal allergic rhinitis due to pollen; Seasonal allergic rhinitis, unspecified trigger 09/09/2024 Travel 08/26/2024 3:30 PM EDT Office Visit [facility] [address] [place] [address] [phone] Hypopituitarism (HCC) 08/26/2024 2:15 PM EDT Clinical Support [facility] [address] [place] [address] Allergic rhinitis due to animal (cat) (dog) hair and dander; Seasonal allergic rhinitis due to pollen; Allergic rhinitis due to dust 08/26/2024 Travel 08/12/2024 3:30 PM EDT Office Visit [facility] [address] [place] [address] Hypopituitarism (HCC) 08/05/2024 2:30 PM EDT Clinical Support [facility] [address] [place] [address] Allergic rhinitis due to animal (cat) (dog) hair and dander; Seasonal allergic rhinitis due to pollen; Allergic rhinitis due to dust 08/05/2024 Travel 07/29/2024 3:40 PM EDT Office Visit [facility] [address] [place] [address] Hypopituitarism (HCC) 07/27/2024 2:00 PM EDT Clinical Support [facility] [address] [place] [address] Allergic rhinitis due to animal (cat) (dog) hair and dander; Seasonal allergic rhinitis due to pollen; Allergic rhinitis due to dust 07/27/2024 Travel 07/15/2024 4:10 PM EDT Office Visit [facility] [address] [place] [address] [phone] Hypopituitarism (HCC) 07/15/2024 3:00 PM EDT Clinical Support [facility] [address] [place] [address] Allergic rhinitis due to animal (cat) (dog) hair and dander; Seasonal allergic rhinitis due to pollen; Allergic rhinitis due to dust 07/15/2024 Travel from Last 3 Months Family History Medical History Relation Name Comments CABG Father Coronary artery disease Father Diabetes Father Obesity Mother Relation Name Status Comments Father Alive Mother Alive Social History Tobacco Use Types Packs/Day Years [...] Sign Reading Time Taken Comments Blood Pressure - - Pulse 72 09/19/2023 11:37 AM EDT Temperature - - Respiratory Rate 18 09/19/2023 11:37 AM EDT Oxygen Saturation 97% 09/19/2023 11:37 AM EDT Inhaled Oxygen Concentration - - Weight 116 kg (255 lb) 06/29/2024 3:40 PM EDT Height 177.8 cm (5' 10 ) 09/19/2023 11:37 AM EDT Body Mass Index 36.59 09/19/2023 11:37 AM EDT Plan of Treatment Upcoming Encounters Date Type Department Care Team (Late st Contact Info) Description 10/21/2024 2:30 PM EDT Clinical Support [facility] [address] [address] [address] [place] [address] 10/28/2024 2:30 PM EDT Office Visit [facility] [address] [place] [address] Kale [place] MD [address] [place] [address] 11/18/2024 2:30 PM EDT Clinical Support [facility] [address] [place] [phone] 06/28/2025 3:40 PM EDT Office Visit [facility] [address] [facility] [address] [place] [address] Sebastian James MD [address] [facility] [address] [place] [address] Insurance BCBS Care Teams Field Sales Engineer Relationship Specialty Start Date End Date Elio Cueto MD [address] [facility], [place] [address] PCP - General Family Medicine 09/11/22
--- OUTSIDE RECORDS SUMMARY | 2024-10-12 08:48 | XMS_ITS | Clinical Summary ---
[facility] Organization [facility] Address [address] [place] [address] Care Team Providers Care Log Processor Operator Name Role Phone Rom Elio Hector DO Primary Care Provider [phone] Allergies No known active allergies Medications levothyroxine (SYNTHROID) 50 MCG tablet TAKE 1 TABLET BY MOUTH DAILY 1 8 Active acetaminophen (TYLENOL) 500 MG tablet Take 1 tablet by mouth every 6 hours as needed for Pain Active metFORMIN (GLUCOPHAGE) 500 MG tablet Take 1 tablet by mouth daily (with breakfast) 3 Active rosuvastatin (CRESTOR) 5 MG tablet Take 1 tablet by mouth nightly 3 Active levocetirizine (XYZAL) 5 MG tablet Take 1 tablet by mouth every evening Active B Complex Vitamins (B COMPLEX 100 PO) Take 1 capsule by mouth daily Active NONFORMULARY Take 1 each by mouth daily Herbal Supplement Active ascorbic acid (VITAMIN C) 1000 MG tablet Take 1 tablet by mouth daily Active Testosterone Cypionate 200 MG/ML SOLN Inject as directed every 14 days Active Active Problems Problem Noted Date Diagnosed Date Erectile dysfunction 08/24/2022 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 Part of [address] [place] [phone] Lisa Cassidy, EDITORIAL INTERN - FREELANCE RECRUITER BPH with obstruction/lower urinary tract symptoms (Primary Dx); Erectile dysfunction, unspecified erectile dysfunction type from Last 3 Months Family History Medical History Relation Name Comments Diabetes Father Heart Disease Father Relation Name Status Comments Father Alive Maternal Grandfather Maternal Grandmother Mother Alive Paternal Grandfather Paternal Grandmother Social History Tobacco Use Types Packs/Day Years [...] Pulse 58 10/08/2024 1:07 PM EDT Temperature 36.5 C (97.7 F) 10/08/2023 1:47 PM EDT Respiratory Rate 18 08/27/2017 9:58 AM EDT Oxygen Saturation 92% 08/27/2017 9:58 AM EDT Inhaled Oxygen Concentration - - Weight 114.9 kg (253 lb 3.2 oz) 10/08/2024 1:07 PM EDT Height 177.8 cm (5' 10 ) 08/24/2022 10: 37 AM EDT Body Mass Index 36.33 08/24/2022 10:37 AM EDT Plan of Treatment Upcoming Encounters Date Type Department Care Team (Late st Contact Info) Description 10/12/2025 2:30 PM EDT Office Visit [facility] UR[facility] Part of [address] [place] [address] Lisa Cassidy APRN - LAUREN [address] [place] [address] [address] [place] [address] 1Y f/u Health Maintenance Due Date Last Done Comments Lipids 1977 Depression Screen 1979 HIV screen 1982 Hepatitis C screen 1985 DTaP/Tdap/Td vaccine (1 - Tdap) 1986 Hepatitis B vaccine (1 of 3 - 19+ 3-dose series) 1986 Colonoscopy 2012 FIT/FOBT: Average risk 2012 Sigmoidoscopy/CT colonography 2012 Pneumococcal 50+ years Vacci ne (1 of 1 - PCV) 2017 Shingles vaccine (1 of 2) 2017 COVID-19 Vaccine (1 - 2023-2 5 season) 2023 Flu vaccine (Season Ended) 2024 Colorectal Cancer Screen 01/14/2027 Fecal-DNA (Cologuard): [place] ge risk 01/14/2027 01/15/2024, 12/16/2020 Hepatitis A vaccine Aged Out No longe r eligible based on patient's age to complete this topic Hib vaccine Aged Out No longer eligi ble based on patient's age to complete this topic Meningococcal (ACWY) vaccine Aged Out No longer eligible based on patient's age to complete this topic Meningococcal B vaccine Aged Out No l onger eligible based on patient's age to complete this topic Polio vaccine Aged Out No longer elig ible based on patient's age to complete this topic Insurance [place]ives * Full Code (Latest Code Status on File) Date Activated Date Inactivated Comments 08/27/2017 6:57 AM 08/27/2017 12:42 PM Care Teams Log Processor Operator Relationship Specialty Start Date End Date Elio Cueto DO [facility] - General 02/16/16
--- OUTSIDE RECORDS SUMMARY | 2024-10-12 08:48 | XMS_ITS | Encounter Summary ---
Author Organization [employer] [facility] Address [id number] [address] [place] [address] Care Team Providers Care Gambling Floor Supervisor Name Role Phone Elio Cueto DO Primary Care Provider Encounter Details Date Type Department Care Team (Late st Contact Info) Description 12/11/2021 Orders Only [facility] Internal Medicine - Family Medicine [address] [place] [phone] External, Scanning Provider Social History Tobacco Use Types Packs/Day Years Used Date Smoking Tobacco: Never Assessed Childcare Answer Date Recorded Childcare Unknown 09/24/2018 Employment Answer Date Recorded Employment Unknown 09/24/2018 Sex and Gender Information Value Date Recorded Sex Assigned at Not on file Legal Sex Male 11:47 AM EDT Gender Identity Not on file Sexual Orientation Not on file documented as of this encounter Plan of Treatment Upcoming Encounters Date Type Department Care Team (Late st Contact Info) Description 11/09/2024 9:00 AM EDT Office Visit [facility] - Family Medicine [address] [place] [phone] Elio Cueto DO [address] [place], [facility] [place] [address] documented as of this encounter Procedures Procedure Name Priority Date/Time Associated Diagnosis Comments PROSTATIC SPECIFIC ANTIGEN SCREEN Routine 12/07/2021 LIPID PROFILE Routine 12/07/2021 HEMOGLOBIN A1C Routine 08/23/2021 documented in this encounter Results * (ABNORMAL) Lipid profile (12/07/2021) External Cholesterol 229(A) < - 200 MANUALLY TRANSCRIBED RESULTS External Cholesterol:Hdl 6.4(A) < - 5.0 MANUALLY TRANSCRIBED RESULTS External Hdl Cholesterol 36 > - 40 MANUALLY TRANSCRIBED RESULTS External Ldl (Calc) 159(A) < - 100 MANUALLY TRANSCRIBED RESULTS External Triglycerides 189(A) < - 150 MANUALLY TRANSCRIBED RESULTS 12/07/2021 us Scanning Provider External LAB BLOOD ORDERABLES Final Result Performing Organization Address City/[facility]/ZIP Co de Phone Number MANUALLY TRANSCRIBED RESULTS * Prostatic specific antigen screen (12/07/2021) PSA 0.29 ng/mL MANUALLY TRANSCRIBED RESULTS 12/07/2021 us Scanning Provider External LAB BLOOD ORDERABLES Edited Result - Final Performing Organization Address [facility] Co de Phone Number MANUALLY TRANSCRIBED RESULTS * (ABNORMAL) Hemoglobin A1c (08/23/2021) External Hemoglobin A1C 6.2(A) < - 5.7 % MANUALLY TRANSCRIBED RESULTS 08/23/2021 us Scanning Provider External LAB BLOOD ORDERABLES Final Result Performing Organization Address [facility] Co de Phone Number MANUALLY TRANSCRIBED RESULTS documented in this encounter Visit Diagnoses Not on filedocumented in this encounter Care Teams Gambling Floor Supervisor Relationship Specialty Start Date End Date Elio Cueto DO [address], [place] [address] PCP - General Family Medicine 06/28/22 documented as of this encounter
--- OUTSIDE RECORDS SUMMARY | 2024-10-12 08:48 | XMS_ITS | Encounter Summary ---
Author Organization [facility] Address [address] [place] [address] Care Team Providers Care Alarm Installation Technician Name Role Phone Elio Cueto MD Primary Care Provider Encounter Details Date Type Department Care Team (Latest Contact Info) Description 10/01/2024 Travel Social History Tobacco Use Types Packs/Day Years [...] 10/21/2024 2:30 PM EDT Clinical Support [facility] [address] [facility] [address] [place] [phone] 10/28/2024 2:30 PM EDT Office Visit [facility] [address] [place] [phone] Kale Barnard MD [address] [place], [place] [phone] 11/18/2024 2:30 PM EDT Clinical Support [facility] [address] [place] [phone] 06/28/2025 3:40 PM EDT Office Visit [facility] [address] [facility] [address] [place] [address] Sebastian James MD [address] [place] [address] documented as of this encounter Visit Diagnoses Not on filedocumented in this encounter Care Teams Alarm Installation Technician Relationship Specialty Start Date End Date Elio Cueto MD [address] [facility] [place] [address] PCP - General Family Medicine 09/11/22 documented as of this encounter
--- OUTSIDE RECORDS SUMMARY | 2024-10-12 08:48 | XMS_ITS | Encounter Summary ---
Author Organization [facility] [employer] [facility] Address [facility] [id number] [address] [place] [address] Care Team Providers Care Photo Checker And Assembler Name Role Phone Rom Elio Hector DO Primary Care Provider + [phone] Encounter Details Date Type Department Care Team (Late st Contact Info) Description 10/08/2022 Orders Only [facility] - Family Medicine [address] [facility] [place] [address] Priscila Serrano CMA Type 2 diabetes mellitus without complication, without long-term current use of insulin ([facility]); Acquired hypothyroidism; Mixed hyperlipidemia; Benign essential hypertension Social History Tobacco Use Types Packs/Day Years [...] often do you attend chur ch or hoahaoism services? More than 4 times per year 01/24/2022 Do you belong to any clubs o r organizations such as bahai groups, unions, fraternal or athletic groups, or [...] Answer Date Recorded Total Score 0 10/12/2022 [facility] - Occupational Stress Questionnaire Answer [...] - Family Medicine [address] [place] [address] Elio Cueto DO [address], [place] [address] documented as of this encounter Procedures Procedure Name Priority Date/Time Associated Diagnosis Comments TSH Routine 10/05/2022 Acquired hypothyroidism T4, FREE Routine 10/05/2022 Acquired hypothyroidism HEMOGLOBIN A1C Routine 10/05/2022 Type 2 diabetes mellitus without complication, without long-term current use of insulin ([facility]) LIPID PROFILE Routine 10/05/2022 Mixed hyperlipidemia COMPREHENSIVE METABOLIC PANEL Routine 10/05/2022 Mixed hyperlipidemia Benign essential hypertension documented in this encounter Results * (ABNORMAL) Comprehensive metabolic panel (10/05/2022) External Albumin 3.6 3.4 - 6.0 MAN UALLY TRANSCRIBED RESULTS External Alt Sgpt 47 16 - 63 MANUALLY TRANSCRIBED RESULTS External Anion Gap 11.2 MANUALLY TRANSCRIBED RESULTS External Ast 19 15 - 37 MANUALL Y TRANSCRIBED RESULTS External Blood Urea Nitrogen Bun 14 7 - 18 MANUALLY TRANSCRIBED RESULTS External Calcium Ca 9.3 8.5 - 10.1 MANUALLY TRANSCRIBED RESULTS External Chloride 104 98 - 107 MANUALLY TRANSCRIBED RESULTS External Co2 / Carbon Dioxide 30.2 21 - 32 MANUALLY TRANSCRIBED RESULTS External Creatinine 14 7 - 18 MANUALLY TRANSCRIBED RESULTS External Gfr Amer >60 >60 MANUALLY TRANSCRIBED RESULTS External Alkaline Phosphatase 88 46 - 116 MANUALLY TRANSCRIBED RESULTS External Glucose Fasting Or Random (Fbs) 133(A) 74 - 106 MANUALLY TRANSCRIBED RESULTS External Potassium K 4.4 3.5 - 5.1 MANUALLY TRANSCRIBED RESULTS External Sodium Na 141 136 - 145 MANUALLY TRANSCRIBED RESULTS Total Bilirubin 0.6 0.2 - 1.0 MANU ALLY TRANSCRIBED RESULTS External Total Protein 7.7 6.4 - 8.2 MANUALLY TRANSCRIBED RESULTS Blood 10/05/2022 Elio Cueto DO LAB BLOOD ORDERABLES Final [facility] Performing Organization Address [facility] Co de Phone Number MANUALLY TRANSCRIBED RESULTS * Lipid panel (10/05/2022) External Cholesterol 191 0 - 200 MANUALLY TRANSCRIBED RESULTS External Cholesterol:Hdl 4.8 4.4 - 7.1 MANUALLY TRANSCRIBED RESULTS External Hdl Cholesterol 40 40 - 60 MANUALLY TRANSCRIBED RESULTS External Ldl (Calc) 130 MANUALLY TRANSCRIBED RESULTS External Triglycerides 105 0 - 150 MANUALLY TRANSCRIBED RESULTS External Very Low Lipoprotein 21 MANUALLY TRANSCRIBED RESULTS Blood 10/05/2022 Elio Cueto DO LAB BLOOD ORDERABLES [facility] Performing Organization Address [facility] de Phone Number MANUALLY TRANSCRIBED RESULTS * TSH (10/05/2022) Pathologist [facility] External Tsh 1.473 0.358 - 3.740 MANUALLY TRANSCRIBED RESULTS Blood 10/05/2022 Elio Cueto DO LAB BLOOD ORDERABLES Final R [facility] Performing Organization Address [facility] de Phone Number MANUALLY TRANSCRIBED RESULTS * T4, free (10/05/2022) Pathologist [facility] External T4 Free 1.06 0.76 - 1.46 MANUALLY TRANSCRIBED RESULTS Blood 10/05/2022 us Elio Cueto DO LAB BLOOD ORDERABLES [facility] Performing Organization Address [facility] de Phone Number MANUALLY TRANSCRIBED RESULTS * (ABNORMAL) Hemoglobin A1c (10/05/2022) Pathologist [facility] External Hemoglobin A1C 6.6(A) 4.5 - 6.2 % MANUALLY TRANSCRIBED RESULTS Blood 10/05/2022 Elio Cueto DO LAB BLOOD ORDERABLES Final R esult MANUALLY TRANSCRIBED RESULTS documented in this encounter Visit Diagnoses Diagnosis Type 2 diabetes mellitus without complication, without long-term current use of insulin ([facility]) Acquired hypothyroidism Unspecified hypothyroidism Mixed hyperlipidemia Benign essential hypertension Essential hypertension, benign documented in this encounter Additional Health Concerns Assessment Noted Time PHQ-9 Depression Total Score: 0 07/06/19 4:33 PM EDT documented as of this encounter Care Teams Photo Checker And Assembler Relationship Specialty Start Date End Date Elio Cueto DO [address] [facility], [facility] [place] [address] PCP - General Family Medicine 06/28/22 documented as of this encounter
--- OUTSIDE RECORDS SUMMARY | 2024-10-12 08:48 | XMS_ITS | Encounter Summary ---
Author Organization [facility] Address [facility] [id number] [address] [place] [address] Care Team Providers Care Language Asst Name Role Phone MattElio baca Primary Care Provider [phone] Encounter Details Date Type Department Care Team (Late st Contact Info) Description 02/15/2022 Orders Only [facility] Family Medicine [address] [place] [address] [phone] Ref Prov, [place] [address] Social History Tobacco Use Types Packs/Day Years [...] often do you attend chur ch or shinto services? More than 4 times per year [...] Answer Date Recorded Total Score 1 01/24/2022 [facility] of Occupat ional Health - Occupational Stress [...] Recorded Do you need help finding a walkby [employer] career center and/or a training program? No [...] have Coronavirus / COVID-19? No / Unsure 01/24/2022 9:30 AM EDT documented as of this encounter Plan of Treatment Upcoming Encounters Date Type Department Care Team (Late st Contact Info) Description 11/09/2024 9:00 AM EDT Office Visit [facility] - Family Medicine [address] [place] [address] Elio Cueto DO [address] [place] [address] documented as of this encounter Procedures Procedure Name Priority Date/Time Associated Diagnosis Comments DIABETES EYE EXAM Routine 02/15/2022 documented in this encounter Results * DIABETES EYE EXAM (02/15/2022) us Not In System Ref Prov HEALTH MAINTENANCE Final Result MANUALLY TRANSCRIBED RESULTS documented in this encounter Visit Diagnoses Not on filedocumented in this encounter Additional Health Concerns Assessment Noted Time PHQ-9 Depression Total Score: 1 01/25/20 22 9:40 AM EDT documented as of this encounter Care Teams Language Asst Relationship Specialty Start Date End Date Elio Cueto DO [address], [facility] [place] [address] PCP - General Family Medicine 06/28/22 documented as of this encounter
[2024-10-12 09:24] LABS: Hemoglobin 15.7 g/dL (14.0-18.0)
[2024-10-12 10:52] LABS: Prostate Specific Antigen Dx 0.51 ng/mL (<=4.00)
[2024-10-13 04:07] LABS: Testosterone 381 ng/dL (264-916)
== END 2024-10-12 08:43 | disposition home or self-care (01) ==
LOC: LAB 08:45
PROVIDERS: PCP Family Medicine; Visit Provider Internal Medicine
DX: E23.0 Hypopituitarism (principal)
CPT/HCPCS: 36415; 84153; 84403; 85018